=== PATIENT | female | born 1990 | race Caucasian/White ===

== ENCOUNTER 2017-08-25 12:23 | Emergency (ER) | payer SELFPAY ==
[~2017-08-25] VITALS: Ht 172.7 cm; Wt 102.1 kg
[~2017-08-25 12:23] MED LIST: IBUP600 PO
[2017-08-25 12:31] VITALS: BP 139/64; PULSE 77; RESP 16; TEMP 98.3; O2SAT 98
[2017-08-25] MEDS ORDERED: SUBUTEX PO (12:40)
[2017-08-25] MEDS ORDERED: TOPI100 PO (12:40)
[2017-08-25] MEDS ORDERED: CYMB60CA PO (12:40)
[2017-08-25] MEDS ORDERED: CIPRHC10A LEFT EAR (13:30)
--- NOTE | 2017-08-25 13:31 | PD ---
HPI Chief Complaint: ENT Complaint Time Seen by Provider: 13:07 Travel History International Travel<30 days: No Contact w/Intl Traveler<30days: No Traveled to known affect area: No History of Present Illness HPI 27-year-old female presents emergency department for evaluation of left ear pain that is been present since yesterday. States that she woke up with a sharp pain to her left ear and thought it was swimmer's ear. She used an over- the-counter medication without significant improvement. No radiation of pain pain is mild to moderate in severity. She denies exposures. She does have a history of bilateral ear tubes although has not had issues in some time. Says that she "cannot hear out of her ear" although communicates with me normally. She denies fever, chills, cough, congestion. Denies any other complaints today. PFSH Past Medical History Asthma: Yes Depression: Yes Respiratory: Yes (asthma) ?: Not LMP: LMP states begining of june : 1 Past Surgical History Abdominal Surgery: Yes (HERNIA REPAIR) Tonsillectomy: Yes Social History Alcohol Use: No Tobacco Use: Yes (smokes a pack of cigarettes per day) Substance Use: Yes (H/O HEROIN ABUSE, IV DILAUDID USE) Allergies-Medications (Allergen,Severity, Reaction): Coded Allergies: ziprasidone (Verified Allergy, Unknown, extrem lock up, 08/25/17) Reported Meds & Prescriptions Reported Meds & Active Scripts Active Cipro Hc Otic Drops (Ciprofloxacin/Hydrocortisone) 0.2-1% Susp 3 Drop LEFT EAR BID 7 Days Reported [Subutex] 2 Mg PO DAILY Topamax (Topiramate) 100 Mg Tab 100 Mg PO BID Cymbalta DR (Duloxetine HCl) 60 Mg Capdr 60 Mg PO DAILY Review of Systems Except as stated in HPI: all other systems reviewed are Neg Physical Exam Narrative GENERAL: Well-nourished, well-developed patient. SKIN: Focused skin assessment warm/dry. HEAD: Normocephalic. EYES: No scleral icterus. No injection or drainage. EARS:Right pinnae and external canals appear within normal limits. Left ear canal appears erythematous and mildly macerated without significant edema. Bilateral tympanic membranes without erythema, dullness or perforation. Slight bulging of left tympanic membrane. NECK: Supple, trachea midline. No JVD or lymphadenopathy. CARDIOVASCULAR: Regular rate and rhythm without murmurs, gallops, or rubs. RESPIRATORY: Breath sounds equal bilaterally. No accessory muscle use. MUSCULOSKELETAL: No cyanosis, or edema. BACK: Nontender without obvious deformity. No CVA tenderness. Data Data Last Documented VS Vital Signs Date Time Temp Pulse Resp B/P (MAP) Pulse Ox O2 Delivery O2 Flow Rate FiO2 08/25/17 12:31 98.3 77 16 139/64 (89) 98 Orders Orders Ed Discharge Order (08/25/17 13:31) MDM Medical Decision Making Medical Screen Exam Complete: Yes Emergency Medical Condition: Yes Differential Diagnosis Otitis media, otitis externa, malingering, allergic dermatitis Narrative Course 27-year-old female presents emergency department complaining of left ear pain that is been present since yesterday. Patient initially told triage that she cannot hear out of the ear although I do not have any objective evidence of this. We are able to communicate normally without elevation of her voices. Physical exam findings demonstrated some maceration with mild erythema of the left external ear canal. No obvious discharge. Slight bulging of the left tympanic membrane. Patient has otitis externa, possibly some allergic otitis media as she does have bulging of the left tympanic membrane. Cipro otic for the left ear. Advised that she may take out allergy medications [id number] to reduce some of the fluid buildup behind the tympanic membrane. Bilateral tympanic membranes are both intact. Advised to follow-up with primary care physician. Consider ear nose throat specialist for further evaluation. Diagnosis Primary Impression: Otitis externa Qualified Codes: H60.502 - Unspecified acute noninfective otitis externa, left ear Referrals: Ear / Nose / Throat Specialist Additional Instructions: Use medications as prescribed. Follow-up with an [place] or your primary care physician. Take Tylenol or Motrin per package instructions for pain. Use Claritin, Bree, or Zyrtec for possible allergic component. He may use generics. Scripts Ciprofloxacin-Hydrocortisone Otic Drops (Cipro Hc Otic Drops) 0.2-1% Susp 3 DROP LEFT EAR BID for Infection for 7 Days, #1 BOTTLE 0 Refills Prov: Livia Sandoval DO 08/25/17 Disposition: 01 DISCHARGE HOME Condition: Stable Smita Stevens August 25, 2017 13:31
[2017-08-26] MEDS ORDERED: BUPR2SUB SL (11:24)
[2017-08-27] MEDS ORDERED: [UNRECOGNIZED DRUG - CODE] LEFT EAR (14:53)
== END 2017-08-25 13:43 | disposition home or self-care (01) ==
LOC: PHEFT 12:23
DX: H60.92 Unspecified otitis externa, left ear (principal); J45.909 Unspecified asthma, uncomplicated; F32.9 Major depressive disorder, single episode, unspecified; F17.210 Nicotine dependence, cigarettes, uncomplicated; Z79.899 Other long term (current) drug therapy; Z88.8 Allergy status to other drugs, medicaments and biological substances
CPT/HCPCS: 99283